=== PATIENT | female | born 2000 | race Two or more races ===

== ENCOUNTER 2024-09-17 19:45 | Emergency (ER) | payer MEDICAID, SELFPAY ==
[2024-09-17 19:57] VITALS: BP 135/92; PULSE 114; RESP 20; TEMP 37.8; O2SAT 97; BMI 56.6
--- NOTE | 2024-09-17 20:09 | PD.EDURI ---
Upper Respiratory Inf. RME/HPI General Chief Complaint: Flu Like Symptoms Stated Complaint: NAUSEA AND VOMITING WITH FEVER Time Seen by Provider: 09/17/24 20:03 Source: patient Arrival date/time: 09/17/24 19:45 24-year-old female presents emergency department complaining of fever, runny nose, frontal sinus pain, cough, and vomiting that is been ongoing for several days. Mode of arrival: ambulatory Limitations: no limitations Related Data Home Medications ?Medication ?Instructions ?Recorded ?Confirmed vitamins-iron fumarate 27 1 tab PO QDAY 07/04/19 07/04/19 mg iron-folic acid 0.8 mg tablet ( Vitamin) Previous Rx's ?Medication ?Instructions ?Recorded hydrocodone 5 mg-acetaminophen 325 1 tab PO Q6H PRN pain #7 tabs 08/30/19 mg tablet (Corry) ibuprofen 600 mg tablet 600 mg PO Q6H PRN pain #20 tabs 08/30/19 acetaminophen 500 mg capsule 500 mg PO Q6H PRN pain #30 caps 09/17/24 amoxicillin 875 mg-potassium 1 tab PO BID 7 days #14 tabs 09/17/24 clavulanate 125 mg tablet ibuprofen 600 mg tablet 600 mg PO Q8H PRN pain #20 tabs 09/17/24 Allergies Allergy/AdvReac Type Severity Reaction Status Date / Time egg Allergy Severe Abdominal Verified 08/22/19 16:01 Pain hazelnut Allergy Severe Difficulty Verified 08/22/19 16:01 Breathing pecan nut Allergy Severe THROAT Verified 08/28/19 05:20 SWELLS soy Allergy Severe VOMITING Verified 08/22/19 16:01 walnut Allergy Severe Difficulty Verified 08/22/19 16:01 Breathing tetanus and diphtheria Allergy Intermediate Hives Verified 08/22/19 16:01 toxoids Review of Systems Review of Systems Systems Reviewed: All systems reviewed, normal except as documented Constitutional Constitutional: Reports system reviewed and no additional complaints, except as documented, Denies body ache(s), Denies chills and Reports fever(s) Eyes Eyes: Reports system reviewed and no additional complaints, except as documented and Denies change in vision ENT Ears, Nose, Mouth, and Throat: Reports system reviewed and no additional complaints, except as documented, Denies disequilibrium, Denies dizziness, Reports nasal congestion, Reports sinus pain, Denies sore throat and Denies vertigo Cardiovascular Cardiovascular: Reports system reviewed and no additional complaints, except as documented, Denies chest pain and Denies dyspnea Respiratory Respiratory: Reports system reviewed and no additional complaints, except as documented, Denies chest congestion, Reports cough and Denies dyspnea Gastrointestinal Gastrointestinal: Reports system reviewed and no additional complaints, except as documented, Denies abdominal pain, Denies nausea and Reports vomiting Musculoskeletal Musculoskeletal: Reports system reviewed and no additional complaints, except as documented, Denies abnormal gait and Denies arthralgias Integumentary/Breasts Skin/Breast: Reports system reviewed and no additional complaints, except as documented, Denies erythema, Denies rash and Denies wounds Neurologic Neurologic: Reports system reviewed and no additional complaints, except as documented, Denies abnormal gait, Denies disequilibrium, Denies dizziness and Denies vertigo Past Medical History Past Medical History NEUROLOGIC: Positive Neurological Disorders and Spina Bifida; Negative Seizures CARDIAC: Negative Cardiac Disorders or Congestive Heart Failure RESPIRATORY: Negative Chronic Obstructive Pulmonary Disease (COPD) GASTROINTESTINAL: Negative Gastrointestinal Disorders, Hepatitis or Colorectal Cancer GENITOURINARY: Negative Genitourinary Disorders, Renal Disease or Prostate Cancer REPRODUCTIVE: Positive Previous Pregnancies; Negative Breast Cancer, Endometriosis, Genital Herpes, Gonorrhea, Pelvic Inflammatory Disease, Syphilis, Testicular Cancer or Uterine Prolapse MUSCULOSKELETAL: Negative Musculoskeletal Disorders or Bone Cancer ENDOCRINE: Negative Endocrine Disorders, Diabetes Mellitus Type 1 or Diabetes Mellitus Type 2 HEMATOLOGIC: Negative Blood Disorders or Anemia OTHER HISTORY: Positive Hospitalization; Negative Autoimmune Disease, Down Syndrome, Developmental Delay, Falls, Blood Transfusions, Blood Transfusion Reaction, Anesthesia Reactions, Organ Transplant, MRSA, VRSA, Vancomycin-Resistant Enterococci, Human Immunodeficiency Virus (HIV), Chicken Pox, Measles, Mumps, Rubella (Macedonian Measles), Pertussis, Clostridium Difficile, Cancer, Breast Cancer, Cervical Cancer, Colorectal Cancer, Lung Cancer, Ovarian Cancer, Prostate Cancer or Testicular Cancer Family History FAMILY HISTORY: Positive Family Cancer and Family Surgery; Negative Family Psychiatric Problems, Family Respiratory Disorders, Family Cardiac Disorders, Family Gastrointestinal Problems or Family Anesthesia Reaction Surgical History SURGICAL: Negative Section or Organ Transplant Social History SMOKING STATUS: Never smoker ED Exam General Limitations: Present no limitations General appearance: Present alert and in no apparent distress Head Head exam: Present atraumatic Eye Eye exam: Present normal appearance, PERRL and EOMI ENT ENT exam: Present normal exam, normal oropharynx and mucous membranes moist Neck Neck exam: Present normal inspection, full ROM and trachea midline Chest Chest inspection: Present normal inspection and symmetric chest wall rise Respiratory Respiratory exam: Present normal lung sounds bilaterally Cardiovascular Cardiovascular exam: Present regular rate, normal rhythm and normal heart sounds Abdominal Exam Abdominal exam: Present soft and normal bowel sounds Extremities Exam Extremities exam: Present normal inspection and full ROM Back Exam Back exam: Present normal inspection and full ROM Neurological Exam Neurological exam: Present alert, oriented X3 and CN II-XII intact Psychiatric Psychiatric exam: Present normal affect and normal mood Skin Skin exam: Present warm, dry, intact and normal color Course Quality Measures none Orders Category Date Time Status Acetaminophen Tab [Tylenol ES Tab] Med 09/17/24 20:09 Discontinued 1,000 mg PO X1 ONE Vital Signs Vital signs: Vital Signs Temperature 100.0 F 09/17/24 19:57 Pulse Rate 114 H 09/17/24 19:57 Respiratory Rate 20 09/17/24 19:57 Blood Pressure 135/92 H 09/17/24 19:57 Pulse Oximetry (%) 97 09/17/24 19:57 Oxygen Delivery Method Room Air 09/17/24 19:57 97% room air within normal limits Upper Respiratory Infection MDM Narrative MDM Narrative:: 24-year-old female presents emergency department complaining of fever, runny nose, frontal sinus pain, cough, and vomiting that is been ongoing for several days. Patient appears nontoxic and is hemodynamically stable. No adventitious lung sounds on auscultation. Frontal sinus tenderness on palpation. Patient reports has been having nasal congestion with green-brownish mucus. Abdomen is soft and nontender. Patient not appear to be in any respiratory distress. Patient likely having sinus infection discharged on oral antibiotics instructed to follow-up with primary care provider and return to emergency department for any worsening symptoms or as needed. Patient data External records reviewed:: [facility] previous records Clinical information provided by:: patient Social determinants that could affect healthcare access:: none Patient has the following chronic illnesses:: See chart How is presenting disease/condition affected by chronic disease/condition?: no chronic disease Evaluation data The following diagnostics were reviewed and interpreted by me:: other (specify) (N/A) Lab and/or radiology exams considered but not ordered:: N/A Interpretation Summary: N/A Medications / Prescriptions Medications or Prescriptions considered but not ordered:: Ordered Medication administrations:: Medication Administration History Discontinued Medications Acetaminophen (Acetaminophen 500 Mg Tablet) 1,000 mg PO X1 ONE Stop: 09/17/24 20:10 Last Admin: 09/17/24 20:36 Dose: 1,000 mg Documented By: EE Given Consultations Consultation(s) initiated? (list below): No Diagnosis Upper Respiratory Differential Diagnosis: upper respiratory infection, otitis media, sinusitis, viral infection, bronchitis, influenza and pharyngitis Most likely diagnosis given after review of the tests above:: Sinusitis Admission Indicated Admission indicated?: not indicated Admission Request Was there a request for admission?: No Disposition Plan Disposition Plan: Discharge Discharge Attestation Discharge Attestation: The patient and all family members were given an opportunity to ask questions and understood the discharge instructions. Discharge instructions specifically effects, indications for sooner follow up or return to the emergency department, and the expected course of current diagnosis. Patient condition: Stable Discharge Plan Plan Patient Disposition: HOME (Self Care) Disposition Comment: Stable Prescriptions/Referrals Prescriptions/Med Rec: New acetaminophen 500 mg capsule 500 mg PO Q6H PRN (Reason: pain) Qty: 30 0RF amoxicillin-pot clavulanate 875-125 mg tablet 1 tab PO BID 7 Days Qty: 14 0RF ibuprofen 600 mg tablet 600 mg PO Q8H PRN (Reason: pain) Qty: 20 0RF No Action hydrocodone-acetaminophen [Corry] 5-325 mg tablet 1 tab PO Q6H MDD 4 PRN (Reason: pain) Qty: 7 0RF ibuprofen 600 mg tablet 600 mg PO Q6H MDD 6 PRN (Reason: pain) Qty: 20 0RF Vitamin 27 mg iron- 0.8 mg Tablet 1 tab PO QDAY Problem List Clinical Impression: Sinusitis Patient/Caregiver Discharge Instructions Education Materials: ED Sinusitis (Antibiotic Treatment) Additional Instructions: Take antibiotic as prescribed. Take acetaminophen and ibuprofen as needed for fever or pain. Drink plenty of fluids to liquefy secretions. Follow-up with primary care provider in 24 to 48 hours. Return to emergency department for any worsening symptoms or as needed. Print Language: Czech Stand Alone Forms: Dottie Award Info., Patient Portal Info Letter PA/ACCOUNT CONTACT ASSOCIATE Supervising Physician PA/ACCOUNT CONTACT ASSOCIATE Supervising Physician: Dr. Callahan
[2024-09-17] MEDS: ACETAMINOPHEN 500 MG TABLET 1000 MG PO (20:36)
== END 2024-09-17 20:37 | disposition home or self-care (01) ==
LOC: SERX 20:39
PROVIDERS: Emergency Provider Emergency Medicine; PCP Family Medicine
DX: J32.9 Chronic sinusitis, unspecified (principal)
CPT/HCPCS: 99282; A9270